=== PATIENT | female | born 1995 | race Caucasian/White ===

== ENCOUNTER 2023-12-03 12:56 | Outpatient (CLI) | payer OTHER ==
[~2023-12-03] VITALS: Ht 160 cm; Wt 81.6 kg
[2023-12-03 11:53] VITALS: BP 128/80; O2SAT 100
[2023-12-03] MEDS ORDERED: RINGERS SOLUTION,LACTATED 1,000 ML IV SCH (13:15)
[2023-12-03] MEDS ORDERED: PRENATAL TABLE1 EAC1 PO (13:21)
[2023-12-03 13:49] LABS: HEMATOCRIT 37.7 % (36.0-45.00); HEMOGLOBIN 12.7 g/dL (12.0-15.00); MEAN CELL VOLUME 80.2 fL (80.00-100.00); MEAN CORPUSCULAR HGB CONC 33.7 g/dl (32.0-36.0); PH,URINE 6.5 (5.0-8.0); PLATELET COUNT 234 K/uL (150-450); RED BLOOD COUNT 4.69 M/uL (4.00-6.00); RED CELL DISTRIBUTION WIDTH 13.5 % (11.5-14.5); URINE APPEARANCE Cloudy; URINE BILIRRUBIN Negative (NEGATIVE); URINE BLOOD Negative; URINE CAST 1.67 uL (0.0-1.40); URINE COLOR Yellow; URINE EPITHELIAL CELLS 22.5 uL (0.0-38.8); URINE GLUCOSE Negative (NEGATIVE); URINE KETONE Negative (NEGATIVE); URINE LEUKOCYTE Large; URINE NITRATE Negative; URINE PROTEIN Negative (NEGATIVE); URINE RBC 4.7 uL (0.0-20.8); URINE UROBILINOGEN 0.2 E.U./dl; URINE WBC 217.9 uL (0.0-23.2)
[2023-12-03 14:06] LABS: INR < 0.93; PARTIAL THROMBOPLASTIN TIME 27.9 SECONDS (22.0-34.0); PROTHROMBIN TIME 9.7 SECONDS (9.0-11.5)
[2023-12-03 14:10] LABS: ALBUMIN 2.8 gm/dL (3.4-5.0); BILIRUBIN TOTAL 0.21 mg/dL (0.3-1.2); CALCIUM 8.6 mg/dL (8.5-10.1); CREATININE SERUM 0.5 mg/dL (0.55-1.02); GFR 149.14; GLOBULINA 3.6 G/DL (2.4-3.5); POTASSIUM 3.7 mEq/L (3.5-5.1); TOTAL PROTEIN 6.4 gm/dL (6.4-8.2)
[2023-12-03 14:34] LABS: URINE BACTERIA > 9821.5 uL (0.0-1933)
[2023-12-03 14:35] LABS: URINE MUCUS SCANT
[2023-12-03 15:18] VITALS: BP 114/70; O2SAT 100
== END 2023-12-03 18:52 | disposition left against medical advice (07) ==
LOC: OBS/DEL 12:56
PROVIDERS: Obstetrics & Gynecology; ATTEND Specialist
DX: O36.8130 Decreased fetal movements, third trimester, not applicable or unspecified (principal); Z3A.30 30 weeks gestation of pregnancy; R10.2 Pelvic and perineal pain

== ENCOUNTER 2023-12-25 11:34 | Inpatient (IN) | payer OTHER ==
[~2023-12-25] VITALS: Ht 160 cm; Wt 88.0 kg
[~2023-12-25 11:34] MED LIST: PRENATAL TABLE1 EAC1 PO
[2023-12-25] MEDS ORDERED: CEFAZOLIN SODIUM 1,000 MG VIAL ONE (11:57)
[2023-12-25] MEDS ORDERED: CEFAZOLIN SODIUM 1,000 MG VIAL IV SCH ×2 (12:15→12:43)
[2023-12-25] MEDS ORDERED: RINGERS SOLUTION,LACTATED 1,000 ML IV SCH (12:15)
[2023-12-25 12:45] LABS: HEMATOCRIT 40.1 % (36.0-45.00); HEMOGLOBIN 13.3 g/dL (12.0-15.00); MEAN CELL VOLUME 80.3 fL (80.00-100.00); MEAN CORPUSCULAR HEMOGLOBIN 26.7 pg (27.00-32.0); MEAN CORPUSCULAR HGB CONC 33.2 g/dl (32.0-36.0); PLATELET COUNT 260 K/uL (150-450); RED CELL DISTRIBUTION WIDTH 13.9 % (11.5-14.5)
[2023-12-25 12:46] LABS: URINE APPEARANCE Clear; URINE BACTERIA 1252.4 uL (0.0-1933); URINE BILIRRUBIN Negative (NEGATIVE); URINE BLOOD NHT; URINE COLOR Yellow; URINE EPITHELIAL CELLS 22.7 uL (0.0-38.8); URINE GLUCOSE Negative (NEGATIVE); URINE LEUKOCYTE Trace; URINE NITRATE Negative; URINE PROTEIN Negative (NEGATIVE); URINE RBC 7.4 uL (0.0-20.8); URINE UROBILINOGEN 0.2 E.U./dl; URINE WBC 14.9 uL (0.0-23.2)
[2023-12-25 13:16] LABS: ALBUMIN 2.7 gm/dL (3.4-5.0); BILIRUBIN TOTAL 0.15 mg/dL (0.3-1.2); CREATININE SERUM 0.49 mg/dL (0.55-1.02); GFR 152.66; GLOBULINA 3.6 G/DL (2.4-3.5); POTASSIUM 4.44 mEq/L (3.5-5.1); TOTAL PROTEIN 6.3 gm/dL (6.4-8.2)
[2023-12-25 13:20] LABS: INR < 0.93; PROTHROMBIN TIME 8.9 SECONDS (9.0-11.5)
[2023-12-25] MEDS ORDERED: OXYTOCIN 20 UNITS/1000ML RL PIGGYBAG IV ONE ×2 (14:23→19:36)
[2023-12-25] MEDS ORDERED: ERYTHROMYCIN BASE 1 GM TUBE OP ONE ×2 (14:23→19:30)
[2023-12-25] MEDS ORDERED: LIDOCAINE HCL 1% 10ML VIAL ONE (14:24)
[2023-12-25] MEDS ORDERED: CHLORHEXIDINE GLUCONATE 120 ML BOTTLE TOP ONE (14:24)
[2023-12-25] MEDS ORDERED: LIDOCAINE HCL 1% 10ML VIAL PERCUT ONE (19:30)
[2023-12-25] MEDS ORDERED: OXYTOCIN 20 UNITS/1000ML RL PIGGYBAG IV SCH (19:30)
[2023-12-25 22:20] LABS: ABG PH 7.221 (7.35-7.45); ABG pCO2 54.7 mmHg (35-45); BASE EXCESS -6.4 mmol/l; SaO2 25.2 %; Tco2 23.6 mmol/l
[2023-12-25 22:21] LABS: o2 21 %
[2023-12-26] MEDS ORDERED: ACETAMINOPHEN 500 MG GEL..CAP PO SCH (09:30)
[2023-12-27] MEDS ORDERED: ONDANSETRON 4 MG TAB.RAPDIS PO STA (08:25)
== END 2023-12-27 18:47 | disposition home or self-care (01) | DRG 807 ==
LOC: OB/GYN 11:34 → LDR 11:34 → OB/GYN 19:08
PROVIDERS: ADMIT Specialist; ATTEND Specialist
PROC: 10E0XZZ Delivery of Products of Conception, External Approach (ICD-10-PCS; principal; 2023-12-25)
PROC: 0W8NXZZ Division of Female Perineum, External Approach (ICD-10-PCS; 2023-12-25)
PROC: 4A1HXCZ Monitoring of Products of Conception, Cardiac Rate, External Approach (ICD-10-PCS; 2023-12-25)
DX: O60.14X0 Preterm labor third trimester with preterm delivery third trimester, not applicable or unspecified (principal); Z37.0 Single live birth; Z3A.33 33 weeks gestation of pregnancy; Z20.822 Contact with and (suspected) exposure to COVID-19